=== PATIENT | female | born 1980 | race Caucasian/White ===

== ENCOUNTER 2018-09-06 01:25 | Emergency (ER) | payer SELFPAY ==
[~2018-09-06] VITALS: Ht 160 cm; Wt 114.5 kg
[2018-09-06 01:35] VITALS: BP 123/79
[2018-09-06 01:41] VITALS: BP 118/79
--- NOTE | 2018-09-06 01:41 | NUR ---
PT AMBULATED TO BED 8
[2018-09-06 01:42] VITALS: BP 118/79
--- NOTE | 2018-09-06 01:45 | NUR ---
PT C/O HAVING LEVY ON BODY THAT ARE CAUSING IRRIATATION TO HER SKIN. PT DENIES SUBSTANCE ABUSE AT THIS TIME BUT ADMITS SUBSTANCE ABUSE IN THE PAST. NO NOTABLE IRRITATIONS NOTED AT THIS TIME. MARCOS GOMES MD MADE AWARE OF STATUS.
[2018-09-06] MEDS ORDERED: PRON INH (01:59)
[2018-09-06] MEDS ORDERED: DEXAMETHASONE 10 MG/ML VIAL IM ONE (02:25)
--- NOTE | 2018-09-06 02:50 | NUR ---
Patient discharged with v/s stable. Written and verbal after care instructions given and explained. Patient alert, oriented and verbalized understanding of instructions. Ambulatory with steady gait. All questions addressed prior to discharge. ID band removed. Patient advised to follow up with PMD. Rx of IVERMECTIN given. Patient educated on indication of medication including possible reaction and side effects. Opportunity to ask questions provided and answered.
== END 2018-09-06 02:50 | disposition home or self-care (01) ==
LOC: MED 01:25
DX: L30.9 Dermatitis, unspecified (principal); Z88.6 Allergy status to analgesic agent; Z79.899 Other long term (current) drug therapy
CPT/HCPCS: 96372; 99283; J1100